=== PATIENT | female | born 2000 | race African-American/Black ===

== ENCOUNTER 2022-08-24 01:48 | Emergency (ER) | payer SELFPAY ==
[~2022-08-24] VITALS: Ht 167.6 cm; Wt 74.1 kg
[2022-08-24 01:51] VITALS: TEMP 98.5
[2022-08-24 03:05] LABS: BASO % 0.5 % (0.0-2.0); EOS % 0.5 % (0.0-4.0); GRAN # 5.3 K/mm3 (1.4-6.5); GRAN % 70.8 % (42.2-75.2); HEMATOCRIT 39.3 % (35.0-45.0); HEMOGLOBIN 13.2 g/dl (12.0-15.0); LYMPH # 1.6 K/mm3 (1.2-3.4); LYMPH % 21.5 % (20.0-51.0); MEAN CELL VOLUME 78 fl (80.0-95.0); MEAN CORPUSCULAR HEMOGLOBIN 26 pg (26-32); MEAN CORPUSCULAR HGB CONC 34 g/dl (33.0-37.0); MEAN PLATELET VOLUME 9.1 fl (7.4-10.4); MONO # 0.5 K/mm3 (0.1-0.6); MONO % 6.3 % (1.7-9.3); PLATELET COUNT 388 K/mm3 (130-400); RED BLOOD COUNT 5.04 M/mm3 (4.10-5.30); REDCELL DISTRIBUTION WIDTH-CV 12.9 % (11.5-14.5)
[2022-08-24 03:17] LABS: TRICYCLIC ANTIDEPRESS URINE NEGATIVE
[2022-08-24 03:19] LABS: ALBUMIN 3.9 gm/dL (3.5-5.0); CALCIUM 10.3 mg/dL (8.4-10.2); CREATININE, serum 0.9 mg/dL (0.57-1.11); POTASSIUM 3.8 mmol/L (3.5-4.5); TOTAL PROTEIN 7.5 gm/dL (6.2-8.1)
[2022-08-24 03:27] LABS: BILIRUBIN,TOTAL 0.3 mg/dL (0.2-1.2)
[2022-08-24] MEDS ORDERED: NORCO 325 MG-51 TAB PO (04:12)
[2022-08-24] MEDS ORDERED: CRUTCHES MC (05:27)
[2022-08-24 05:51] VITALS: BP 133/88; PULSE 92
== END 2022-08-24 05:47 | disposition home or self-care (01) ==
LOC: COL.ER 01:48
PROVIDERS: Emergency Medicine
DX: S92.112A Displaced fracture of neck of left talus, initial encounter for closed fracture (principal); S91.114A Laceration without foreign body of right lesser toe(s) without damage to nail, initial encounter; F10.129 Alcohol abuse with intoxication, unspecified; Z32.02 Encounter for pregnancy test, result negative; V47.5XXA Car driver injured in collision with fixed or stationary object in traffic accident, initial encounter; Y92.410 Unspecified street and highway as the place of occurrence of the external cause; Y90.6 Blood alcohol level of 120-199 mg/100 ml
CPT/HCPCS: J1885